=== PATIENT | female | born 1995 | race Caucasian/White ===

== ENCOUNTER → 2019-03-30 | Outpatient (CLI) | payer BC | LOC: LAB.O 08:21 | PROVIDERS: ATTEND Family Medicine | DX: Z00.00 Encounter for general adult medical examination without abnormal findings (principal) ==

== ENCOUNTER → 2019-10-04 | Outpatient (CLI) | payer BC ==
--- NOTE | 2019-10-04 13:50 | MRI ---
EXAM DESCRIPTION: Thoracic Spine w/o Contrast: Magnetic Resonance Imaging. CLINICAL HISTORY: ACUTE MIDLINE THORACIC BACK PAIN COMPARISON: None. TECHNIQUE: Multiplanar, multiple standard sequences, non contrast MRI, thoracic spine. FINDINGS: From the T5-T6 disc inferiorly to the T11-T12 disc, there is decreased T2-weighted signal in the disc indicating desiccation and minimal disc space loss. At several levels such as T6-T7, T7-T8, T8-T9, and T9-T10, there are inferior and superior endplate irregularities along with the disc space narrowing. T6-T7 disc with posterior midline bulging abutting the cord. No canal or foraminal stenosis. Smaller bulge at T7 and T8 with no significant canal or foraminal narrowing. Posterior midline bulge T8-T9 abutting the cord but no significant canal or foraminal narrowing or stenosis. No canal or foraminal stenosis at other levels. No significant facet joints or posterior ligament hypertrophy at any level. Remaining discs with normal signal. Disc spaces are preserved. Canal and foramina are patent. Facet joints are unremarkable. Conus terminates just above the T12-L1 disc space. Cord with normal signal, no compression. No scoliosis. Paravertebral soft tissues are unremarkable. Partially circumscribed hyperintense object in the posterior aspect of the inferior T10 vertebral body abutting the inferior T10 endplate, hyperintense on T1 and T2 sequences and hypointense on STIR sequences, consistent with a hemangioma. Metallic-like artifact in the lesion in the related to prior hemorrhage. Otherwise normal marrow signal in the remaining vertebral bodies and the posterior elements. Vertebral bodies are not compressed at any level. IMPRESSION: 1. Desiccated discs from the midthoracic spine to the upper lumbar spine. Endplate reactive changes and disc space loss along with disc desiccation at some levels. Posterior disc bulge at T6-T7 and T8-T9, but no significant canal or foraminal narrowing. 2. No vertebral body compression abnormality. Normal signal in the cord with no compression. Electronically signed by: Miguel Markham MD 10/04/2019 1:48 PM CDT
== END ==
LOC: MRI 08:53
PROVIDERS: ATTEND Family Medicine
DX: M51.34 Other intervertebral disc degeneration, thoracic region (principal); M51.35 Other intervertebral disc degeneration, thoracolumbar region; M51.84 Other intervertebral disc disorders, thoracic region

== ENCOUNTER → 2020-05-23 | Outpatient (CLI) | payer BC | LOC: YCFC.O 16:38 | PROVIDERS: ATTEND Nurse Practitioner Family | DX: Z20.828 Contact with and (suspected) exposure to other viral communicable diseases (principal) ==

== ENCOUNTER → 2020-05-25 | Outpatient (CLI) | payer BC | LOC: YCFC.O 12:12 | PROVIDERS: ATTEND Nurse Practitioner Family | DX: Z20.828 Contact with and (suspected) exposure to other viral communicable diseases (principal) ==